=== PATIENT | female | born 1995 | race Caucasian/White ===

== ENCOUNTER → 2017-11-28 | Outpatient (CLI) | payer OTHER ==
--- NOTE | 2017-11-28 13:05 | DIAGNOSTIC IMAGING REPORT ---
VENOUS DOPP LOWER EXT UNILAT HISTORY: 22 years-old Female LEFT THIGH acute pain and swelling of the left lower extremity COMPARISON: None available TECHNIQUE: Multiple real-time sonographic images of the left lower extremity venous structures were obtained assessing grayscale appearance, color and spectral flow FINDINGS: There is normal flow, compressibility, phasicity and augmentation of the left lower extremity deep venous structures. There is a linear hypoechoic collection within the anterior upper thigh within the area of clinical concern, 7.8 x 1.3 x 7.0 cm Mild internal septations/complexity without internal vascularity. Mild associated subcutaneous edema. IMPRESSION: 1. No sonographic evidence of deep venous thrombosis. 2. 7.8 cm hypoechoic collection of the anterior upper thigh suggests possible liquefying hematoma considering history of recent trauma. The above report was generated using voice recognition software. It may contain grammatical, syntax or spelling errors. Electronically signed by: Rico Jaimes M.D. 11/28/2017 1:04 PM Dictated Date/Time: 11/28/2017 1:02 PM
== END | disposition home or self-care (01) ==
LOC: C.ULTRBC 12:16
PROVIDERS: ATTEND Physician Assistant
DX: S70.12XA Contusion of left thigh, initial encounter (principal); X58.XXXA Exposure to other specified factors, initial encounter